=== PATIENT | male | born 1945 | race Caucasian/White ===

== ENCOUNTER → 2021-09-17 | Outpatient (CLI) | payer OTHER ==
--- NOTE | 2021-09-19 04:24 | MR ---
EXAMINATION TYPE: MR lumbar spine wo/w con DATE OF EXAM: 09/17/2021 COMPARISON: None HISTORY: Low back pain into buttocks CONTRAST: Standard multiplanar, multisequence MRI departmental protocol images were obtained without contrast a nd with 10 mL intravenous Gadavist gadolinium contrast. The lumbar vertebrae with normal alignment. There is degenerative disc space narrowing throughout the lumbar spine with mild anterior and posterior disc bulging at all levels. There is developmentally a dequate spinal canal and no significant spinal stenosis. The sacroiliac joints are intact. There is m ild hypertrophic facet arthropathy. There is no lumbar paraspinal mass. The contrast images show no pathologic enhancement. There is no c ompression fracture. There is no evidence of focal bone destruction. IMPRESSION: Multilevel spondylotic changes. No spinal stenosis. Multilevel mild neural foraminal stenosis that is more severe at L3-4 and L4-5 on the right side. No fracture seen.
== END | disposition home or self-care (01) ==
LOC: RADMRIMAIN 08:18
PROVIDERS: ATTEND Physician Assistant
DX: M47.816 Spondylosis without myelopathy or radiculopathy, lumbar region (principal); M99.73 Connective tissue and disc stenosis of intervertebral foramina of lumbar region
CPT/HCPCS: 72158; A9585

== ENCOUNTER → 2024-12-07 | Outpatient (CLI) | payer OTHER ==
--- NOTE | 2024-12-07 12:22 | MR ---
EXAMINATION TYPE: MR lumbar spine wo con DATE OF EXAM: 12/07/2024 11:45 AM COMPARISON: 09/17/2021 CLINICAL INDICATION: Male, 79 years old with history of M54.50 LOW BACK PAIN, Chronic lower back pain , BLE radiculopathy. Hx surgery. IV Contrast: cc (None if empty) TECHNIQUE: Multiplanar, multisequence images of the lumbar spine were acquired without IV contrast. L1-L2: Moderate disc desiccation without posterior disc bulge and mild effacement ventral thecal sac. No evidence for herniation or central stenosis. Facet joint arthropathy with mild left foraminal enc roachment. L2-L3: Moderate disc desiccation without posterior disc bulge and mild effacement ventral thecal sac. No evidence for herniation or central stenosis. Facet joint arthropathy with moderate left foraminal encroachment and mild right foraminal encroachment. L3-L4: Moderate disc desiccation with posterior disc bulge and effacement ventral thecal sac. No evid ence for central stenosis. There may be intermittent right lateral recess stenosis. Severe right fora shirin encroachment. Facet joint arthropathy. L4-L5: Moderate disc desiccation without posterior disc bulge and mild effacement ventral thecal sac. No evidence for herniation or central stenosis. Facet joint arthropathy with moderate bilateral fora shirin encroachment. L5-S1: Normal disc appearance without desiccation. No herniation, protrusion or disc bulging. No ca nal stenosis is present. Foramina are patent bilaterally. Lumbar segments are intact. No paraspinal masses are identified. Conus medullaris has a normal appe arance. IMPRESSION: 1. Multilevel degenerative disc disease with varying degrees of foraminal encroachment and disc bulgi ng as outlined above. [facility], , 12/07/2024 12:20 PM
== END | disposition home or self-care (01) ==
LOC: RADMRIMAIN 11:11
PROVIDERS: ATTEND Family Medicine
DX: M51.360 Other intervertebral disc degeneration, lumbar region with discogenic back pain only (principal)
CPT/HCPCS: 72148